=== PATIENT | male | born 1970 | race Caucasian/White ===

== ENCOUNTER → 2023-05-19 08:08 | Outpatient (REF) | payer BC, SELFPAY | LOC: RCS 08:08 | PROVIDERS: ATTENDING PHYSICIAN Internal Medicine; FAMILY PHYSICIAN Internal Medicine | DX: R00.0 Tachycardia, unspecified (principal) | CPT/HCPCS: 93225; 93226 ==

== ENCOUNTER → 2023-06-05 12:41 | Outpatient (REF) | payer BC, SELFPAY | LOC: RCS 12:41 | PROVIDERS: ATTENDING PHYSICIAN Internal Medicine; FAMILY PHYSICIAN Internal Medicine | DX: R00.0 Tachycardia, unspecified (principal); I10 Essential (primary) hypertension; R06.09 Other forms of dyspnea; R29.818 Other symptoms and signs involving the nervous system | CPT/HCPCS: 93017 ==

== ENCOUNTER → 2023-06-22 | Outpatient (REF) | payer BC, SELFPAY | LOC: DHSLP | PROVIDERS: ATTENDING PHYSICIAN Internal Medicine Critical Care Medicine; FAMILY PHYSICIAN Internal Medicine | DX: G47.33 Obstructive sleep apnea (adult) (pediatric) (principal) | CPT/HCPCS: 95800 ==

== ENCOUNTER → 2023-06-30 13:12 | Outpatient (REF) | payer BC, SELFPAY | LOC: RCS 13:12 | PROVIDERS: ATTENDING PHYSICIAN Internal Medicine; FAMILY PHYSICIAN Internal Medicine | DX: R00.0 Tachycardia, unspecified (principal); I10 Essential (primary) hypertension; R06.09 Other forms of dyspnea; R29.818 Other symptoms and signs involving the nervous system | CPT/HCPCS: 93306 ==